=== PATIENT | male | born 1950 | race Caucasian/White ===

== ENCOUNTER 2017-01-09 14:02 | Emergency (ER) | payer MEDICARE ==
--- NOTE | 2017-01-09 14:37 | ERNOTE ---
Lower Extremity HPI - General Time Seen by Provider: 01/09/17 14:27 Source: patient Exam Limitations: no limitations - Immun/Allergies/Home Medications Immunizations: IMMUNIZATION HX Immunizations Up to Date Yes History of Influenza Vaccine No Hx Pneumococcal Vaccination No Allergies/Adverse Reactions: Allergies Allergy/AdvReac Type Severity Reaction Status Date / Time warfarin AdvReac Verified 01/09/17 14:23 Home Medications: HOME MEDICATIONS Carvedilol [Coreg] 12.5 mg PO DAILY 11/15/15 [Last Taken Unknown] metFORMIN HCL [Glumetza] 1,000 mg PO BID 11/15/15 [Last Taken Unknown] Aspirin 81 mg PO DAILY 01/09/17 [Last Taken Unknown] Ibuprofen [Motrin] 800 mg PO TID PRN #30 tablet 01/09/17 [Last Taken Unknown] Levothyroxine Sodium [Synthroid] 100 mcg PO DAILY 01/09/17 [Last Taken Unknown] - History of Present Illness Narrative: Chase presents for 3 day history of right knee pain. Patient denies excessive activity climbing stairs or excessive walking. 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 Denies any fevers or chills however states that his right knee and right ankle and right leg feels swollen. Not have any prior history of DVTs. No history of gout. He is not having any fevers or chills. Review of Systems - Review of Systems Constitutional: Present: no symptoms reported EYE: Present: no symptoms reported ENT: Present: no symptoms reported Respiratory: Present: no symptoms reported Cardiology: Present: no symptoms reported Gastrointestinal/Abdominal: Present: no symptoms reported Musculoskeletal: Present: See HPI - Patient's Past Medical History Patient History - Medical: Diabetes Type 2 Patient History - Cardiac/Respiratory: Hypertension, Hyperlipidemia Patient History - Cancer: Other Patient History - Surgical Procedures: Cardiac stent Patient History - Other: None - Social History Living Situations: home Abuse History: No History of abuse Psych History: No pertinent hx Smoking Status: Former smoker Alcohol Use: none Drug Use: none - Immunizations Immunizations Up to Date: Yes Hx Pneumococcal Vaccination: No History of Influenza Vaccine: No Physical Exam - Physical Exam General Appearance: Present: wd/wn, alert, no apparent distress, other - 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 Patient is able to whisper his responses. Neck: Present: normal inspection Respiratory: Present: no respiratory distress, normal breath sounds, no accessory muscle use, chest nontender, lungs clear Cardiovascular/Chest: Present: regular rate, rhythm, no murmur, normal peripheral pulses Extremity Exam: Present: other - a Giovannytz right knee is slightly swollen and warm to the touch I do not appreciate any redness it is not hot to the touch there is no streaking. Patient is tender in the right calf area and right ankle he is walking with crutches he wasn't walking prior to this episode 3 days ago. It is no deformity ED Progress - Vital Signs Vital Signs: Vital Signs 01/09/17 14:15 Temperature 36.8 C Pulse Rate 68 Respiratory 22 H Rate Blood Pressure 157/87 O2 Sat by Pulse 100 Oximetry - Progress/Reassessment Chief Complaint: Lower Extremity Pain/ Injury Plan - Plan Plan: Straight is negative for any fracture, uric acid is negative, this patient appears to have soft tissue inflammation and arthritis of the right knee compression will be applied in addition to anti-inflammatories and patient is to follow-up with his primary care doctor he is to ice and elevate the right knee. Departure Clinical Impression: Arthritis - Departure Disposition: Home self-care Condition: Fair Instructions: Knee Pain Additional Instructions: He is keep compression wrap on elevate and ice her right knee. Follow up with your primary care doctor in the next 48 hours Prescriptions: Ibuprofen [Motrin] 800 mg PO TID PRN #30 tablet PRN Reason: Pain
[2017-01-09 14:49] LABS: Hematocrit 36.5 % (42.0-52.0); Hemoglobin 12.5 gm/dL (13.5-18.0); Mean Cell Volume 89.5 fl (78-100); Mean Corpuscular Hemoglobin 30.6 pg (27-31); Mean Corpuscular Hgb Conc 34.2 g/dl (32-36); Mean Platelet Volume 10.3 fl (6.0-9.5); Neutrophil # 4.4 K/mm3 (1.3-6.0); Platelet Count 229 K/mm3 (150-450); Red Blood Count 4.08 M/mm3 (4.7-6.0); Red Cell Distribution Width 15.7 % (11.5-14.0); White Blood Count 6.1 K/mm3 (4.0-10.5)
[2017-01-09 15:00] LABS: CRP 2.3 mg/dL (0.0-0.9)
[2017-01-09] MEDS ORDERED: IBUPROFEN 400 MG TABLET ONE (15:28)
[2017-01-09] MEDS ORDERED: IBUPROFEN 400 MG TABLET PO ONE (15:33)
[2017-01-09 15:49] VITALS: BP 155/86
== END 2017-01-09 15:40 | disposition home or self-care (01) ==
LOC: ER 14:02
DX: M17.11 Unilateral primary osteoarthritis, right knee (principal); Z95.5 Presence of coronary angioplasty implant and graft; E11.9 Type 2 diabetes mellitus without complications; I10 Essential (primary) hypertension; Z87.891 Personal history of nicotine dependence; Z93.0 Tracheostomy status